=== PATIENT | female | born 1990 | race Two or more races ===

== ENCOUNTER 2017-05-06 03:58 | Emergency (ER) | payer MEDICAID ==
[~2017-05-06] VITALS: Ht 162.6 cm; Wt 56.9 kg
[2017-05-06 04:00] VITALS: BP 127/81
== END 2017-05-06 05:49 | disposition home or self-care (01) ==
LOC: ED 05:43
DX: J20.9 Acute bronchitis, unspecified (principal); F17.200 Nicotine dependence, unspecified, uncomplicated
CPT/HCPCS: 71046; 93005; 99284

== ENCOUNTER 2018-03-18 19:00 | Emergency (ER) | payer MEDICAID ==
[~2018-03-18] VITALS: Ht 162.6 cm; Wt 60.3 kg
[2018-03-18 19:22] LABS: BASOPHILS # (AUTO) 0.05 x10^3/uL (0-0.1); BASOPHILS % (AUTO) 1 % (0-1); EOSINOPHILS # (AUTO) 0.15 x10^3/uL (0-0.4); EOSINOPHILS % (AUTO) 1 % (1-7); LYMPHOCYTES # (AUTO) 3.23 x10^3/uL (1-3.4); LYMPHOCYTES % (AUTO) 32 % (22-44); MD NO; MEAN CORPUSCULAR HEMOGLOBIN 30.7 pg (27.0-34.8); MEAN CORPUSCULAR HGB CONC 33.8 g/dL (32.4-35.8); MEAN PLATELET VOLUME 9.7 fL (7.4-10.4); MONOCYTES # (AUTO) 0.72 x10^3/uL (0.2-0.8); MONOCYTES % (AUTO) 7 % (2-9); NEUTROPHILS # (AUTO) 6.03 x10^3/uL (1.8-6.8); NEUTROPHILS % (AUTO) 59 % (42-75); PLATELET COUNT 212 x10^3/uL (130-400); RED BLOOD COUNT 4.77 x10^6/uL (3.82-5.3); RED CELL DISTRIBUTION WIDTH 13.4 % (9.6-15.2)
[2018-03-18] MEDS ORDERED: SODIUM CHLORIDE FLUSH 10ML SYR IVF ONE (19:30)
[2018-03-18 19:32] LABS: ALANINE AMINOTRANSFERASE 20 U/L (12-78); ALBUMIN 3.4 g/dL (3.4-5.0); ANION GAP 4 mmol/L (5-15); CALCIUM 8.3 mg/dL (8.5-10.1); CHLORIDE 108 mmol/L (98-107); CREATININE 0.91 mg/dL (0.55-1.02)
[2018-03-18 19:34] LABS: ALKALINE PHOSPHATASE 81 U/L (45-117); BILIRUBIN,TOTAL 0.4 mg/dL (0.2-1.0); TOTAL PROTEIN 7.2 g/dL (6.4-8.2)
[2018-03-18 19:56] LABS: CULTURE INDICATED? YES; MICROSCOPIC INDICATED
[2018-03-18] MEDS ORDERED: CEFTRIAXONE 1,000 MG ONE (20:53)
[2018-03-18] MEDS ORDERED: CEFTRIAXONE 1,000 MG IM ONE (21:00)
[2018-03-18 21:49] VITALS: BP 115/79
== END 2018-03-18 21:51 | disposition home or self-care (01) ==
LOC: ED 21:02
DX: N30.01 Acute cystitis with hematuria (principal); F17.200 Nicotine dependence, unspecified, uncomplicated
CPT/HCPCS: 36415; 80053; 81001; 81025; 85025; 87086; 96372; 99283; J0696

== ENCOUNTER 2019-06-12 10:55 | Emergency (ER) | payer MEDICAID, OTHER ==
[~2019-06-12] VITALS: Ht 162.6 cm; Wt 64.0 kg
[2019-06-12 11:09] VITALS: BP 137/67
--- NOTE | 2019-06-12 12:00 | NUR ---
COUGH WITH ACCOMPANYING CP FOR 3 WEEKS. PT STATES SHE IS 8 WEEKS
[2019-06-12 12:11] LABS: RAPID INFLUENZA A Negative (Negative); RAPID INFLUENZA B Negative (Negative)
== END 2019-06-12 12:43 | disposition home or self-care (01) ==
LOC: ED 12:37
DX: O98.511 Other viral diseases complicating pregnancy, first trimester (principal); O99.331 Smoking (tobacco) complicating pregnancy, first trimester; B34.9 Viral infection, unspecified; F17.200 Nicotine dependence, unspecified, uncomplicated; Z3A.01 Less than 8 weeks gestation of pregnancy
CPT/HCPCS: 71046; 87400; 99284

== ENCOUNTER 2019-06-16 19:34 | Emergency (ER) | payer OTHER ==
[~2019-06-16] VITALS: Ht 162.6 cm; Wt 61.7 kg
[2019-06-16 21:23] LABS: BASOPHILS # (AUTO) 0.03 x10^3/uL (0-0.1); BASOPHILS % (AUTO) 0 % (0-1); EOSINOPHILS # (AUTO) 0.09 x10^3/uL (0-0.4); EOSINOPHILS % (AUTO) 1 % (1-7); LYMPHOCYTES # (AUTO) 3.05 x10^3/uL (1-3.4); LYMPHOCYTES % (AUTO) 34 % (22-44); MD NO; MEAN CORPUSCULAR HEMOGLOBIN 31.1 pg (27.0-34.8); MEAN CORPUSCULAR HGB CONC 33.8 g/dL (32.4-35.8); MEAN CORPUSCULAR VOLUME 91.9 fL (80-100); MEAN PLATELET VOLUME 9.5 fL (7.4-10.4); MONOCYTES # (AUTO) 0.57 x10^3/uL (0.2-0.8); MONOCYTES % (AUTO) 6 % (2-9); NEUTROPHILS # (AUTO) 5.25 x10^3/uL (1.8-6.8); NEUTROPHILS % (AUTO) 58 % (42-75); PLATELET COUNT 212 x10^3/uL (130-400); RED BLOOD COUNT 4.83 x10^6/uL (3.82-5.3); RED CELL DISTRIBUTION WIDTH 14.4 % (9.6-15.2)
[2019-06-16 21:29] LABS: ALANINE AMINOTRANSFERASE 31 U/L (12-78); ALBUMIN 3.4 g/dL (3.4-5.0); ANION GAP 4 mmol/L (5-15); CALCIUM 8.8 mg/dL (8.5-10.1); CHLORIDE 110 mmol/L (98-107)
--- NOTE | 2019-06-16 21:41 | NUR ---
PT IS US CURRENTLY, US TECH WILL BRING TO ROOM 3 WHEN DONE
[2019-06-16 21:46] LABS: ALKALINE PHOSPHATASE 80 U/L (45-117); BILIRUBIN,TOTAL 0.2 mg/dL (0.2-1.0); CREATININE 0.72 mg/dL (0.55-1.02); TOTAL PROTEIN 7.1 g/dL (6.4-8.2)
[2019-06-16 22:46] LABS: MICROSCOPIC INDICATED
[2019-06-16 22:54] LABS: CULTURE INDICATED? NO
[2019-06-16 23:06] VITALS: BP 116/71
== END 2019-06-16 23:19 | disposition home or self-care (01) ==
LOC: ED 22:00
DX: O20.0 Threatened abortion (principal); O99.331 Smoking (tobacco) complicating pregnancy, first trimester; Z3A.01 Less than 8 weeks gestation of pregnancy
CPT/HCPCS: 36415; 76801; 80053; 81001; 84702; 85025; 86901; 99284

== ENCOUNTER 2019-06-18 14:49 | Emergency (ER) | payer OTHER ==
[~2019-06-18] VITALS: Ht 162.6 cm; Wt 60.6 kg
[2019-06-18 14:52] VITALS: BP 119/58
--- NOTE | 2019-06-18 15:09 | NUR ---
FIRST CONTACT WITH PT. PT C/O: FOLLOW UP FROM RECENT VISIT FOR LESS THAN 14 WEEKS WITH RISK OF THREATENED . PT REPORTS VAGINAL BLEEDING AT THIS TIME LESS THAN A PAD AN HOUR. PT DENIES ABD PAIN/N/V. PT'S AOX4. RESPS EVEN AND UNLABORED. BP/SPO2 MONITORS IN PLACE. CALL LIGHT WITHIN REACH.
--- NOTE | 2019-06-18 15:57 | NUR ---
PT RESTING IN [facility]. RESPS EVEN AND UNLABORED. PT'S AOX4.
--- NOTE | 2019-06-18 16:37 | NUR ---
Patient given discharge instructions and they have confirmed that they understand the instructions. Patient ambulatory with steady gait.
== END 2019-06-18 16:37 | disposition home or self-care (01) ==
LOC: ED 15:38
DX: O20.0 Threatened abortion (principal); Z3A.01 Less than 8 weeks gestation of pregnancy
CPT/HCPCS: 36415; 84702; 99283